=== PATIENT | female | born 1975 | race Hispanic/Latino ===

== ENCOUNTER 2024-01-22 04:24 | Emergency (ER) | payer BC, OTHER ==
[~2024-01-22] VITALS: Ht 157.5 cm; Wt 81.6 kg
[2024-01-22] MEDS: ACETAMINOPHEN 325 MG TAB PO ONE (05:22)
[2024-01-22] MEDS: KETOROLAC TROMETHAMINE 30 MG/ML VIAL IM ONE (05:23)
[2024-01-22] MEDS: TETANUS/DIPHTHERIA TOX ADULT 0.5 ML SYR IM STA (05:24)
[2024-01-22] MEDS ORDERED: IBUPROFEN200 MG PO (05:55)
[2024-01-22] MEDS ORDERED: TYLENOL325 MG PO (05:55)
[2024-01-22 07:26] VITALS: PULSE 87; RESP 16; TEMP 98.7; O2SAT 96
== END 2024-01-22 07:26 | disposition home or self-care (01) ==
LOC: FSED 04:28
DX: S43.101A Unspecified dislocation of right acromioclavicular joint, initial encounter (principal); S46.811A Strain of other muscles, fascia and tendons at shoulder and upper arm level, right arm, initial encounter; Y04.2XXA Assault by strike against or bumped into by another person, initial encounter; Y92.413 State road as the place of occurrence of the external cause
CPT/HCPCS: 73030; 90471; 90714; 99283; J1885